=== PATIENT | male | born 1985 | race Caucasian/White ===

== ENCOUNTER → 2018-04-10 14:22 | Emergency (ER) | payer SELFPAY ==
--- NOTE | 2018-04-10 15:44 | ED ---
Lower Extremity - HPI Summary HPI Summary: Patient is a 32-year-old male who presents emergency department for a left ankle injury that occurred 4 days ago. Patient states he is taking his dog out to run in the yard when his dog ran into him and knocked him over twisting his left ankle. Patient has an walking on it with pain since. Symptoms are mild in severity. Walking and touching ankle makes symptoms worse. Rest makes symptoms better. No other injuries were sustained. - History of Current Complaint Chief Complaint: EDExtremityLower Stated Complaint: ANKLE PAIN Time Seen by Provider: 04/10/18 14:53 Hx Obtained From: Patient Pain Intensity: 8 - Allergies/Home Medications Allergies/Adverse Reactions: Allergies Allergy/AdvReac Type Severity Reaction Status Date / Time cefaclor [From [facility]] Allergy Hives Verified 04/10/18 14:28 PMH/Surg Hx/FS Hx/Imm Hx Previously Healthy: Yes Endocrine/Hematology History: Denies: Hx Diabetes, Hx Thyroid Disease Cardiovascular History: Denies: Hx Hypertension Respiratory History: Denies: Hx Asthma, Hx Chronic Obstructive Pulmonary Disease (COPD) GI History: Denies: Hx Ulcer Sensory History: Reports: Hx Vision Problem - Needs glasses Denies: Hx Hearing Problem Opthamlomology History: Reports: Hx Vision Problem - Needs glasses Neurological History: Denies: Hx Dementia, Hx Developmental Delay, Hx Headaches, Hx Migraine, Hx Nerve Disease, Hx Seizures, Hx Spinal Cord Injury, Hx Transient Ischemic Attacks (TIA), Other Neuro Impairments/Disorders - Surgical History Surgery Procedure, Year, and Place: oral Infectious Disease History: No Infectious Disease History: Denies: Hx Hepatitis, Hx Human Immunodeficiency Virus (HIV), Traveled Outside the [place] in Last 30 Days - Family History Known Family History: Positive: Other - Noncontributory - Social History Occupation: Employed Full-time Lives: With Family Alcohol Use: Rare Substance Use Type: Reports: Marijuana Smoking Status (MU): Current Every Day Smoker Review of Systems Positive: Other - left ankle pain All Other Systems Reviewed And Are Negative: Yes Physical Exam Triage Information Reviewed: Yes Vital Signs On Initial Exam: Initial Vitals Temp Pulse Resp BP Pulse Ox 99.1 F 79 14 113/76 97 04/10/18 14:26 04/10/18 14:26 04/10/18 14:26 04/10/18 14:26 04/10/18 14:26 Vital Signs Reviewed: Yes Appearance: Positive: Well-Appearing - Pt. sitting in chair in NAD. Skin: Positive: Warm, Dry Eyes: Positive: Normal, EOMI Neck: Positive: Supple Musculoskeletal: Positive: Other - Left foot is irrationally intact. No breaks in the skin. Diffuse ankle edema with pain laterally. Achilles tendon is intact. No palpable foot pain or pain to the base of the fifth metatarsal. No proximal tib-fib or knee pain. Neurological: Positive: Normal, CN Intact II-III Psychiatric: Positive: Affect/Mood Appropriate Procedures - Splinting Left Lower Extremity Pre-Made Type: aircast Pre-Proc Neuro Vasc Exam: normal Post-Proc Neuro Vasc Exam: normal Diagnostics - Vital Signs Vital Signs Temp Pulse Resp BP Pulse Ox 04/10/18 14:26 99.1 F 79 14 113/76 97 - Laboratory Lab Statement: Any lab studies that have been ordered have been reviewed, and results considered in the medical decision making process. Lower Extremity Course/Dx - Course Course Of Treatment: Presenting with left ankle injury. X-ray shows soft tissue swelling without fracture dislocation, reading per radiology. Air splint placed for comfort. Advised ice and elevate. Anti-inflammatories for pain and swelling. To follow-up with the PE or orthopedics if pain persists. Patient understands and agrees with plan. - Diagnoses Differential Diagnosis/HQI/PQRI: Positive: Arthritis, Contusion, Fracture ( Closed), Sprain, Strain Provider Diagnoses: Ankle sprain Discharge - Sign-Out/Discharge Documenting (check all that apply): Patient Departure - Discharge Plan Condition: Good Disposition: HOME Patient Education Materials: Ankle Sprain (ED) Referrals: Moy Fraga NP [Primary Care Provider] - Gonsalo Tafoya MD [Medical Doctor] - Additional Instructions: Follow up with orthopedics or PCP if pain persist Ice and elevate Splint for comfort Tylenol or Motrin for pain as directed - Billing Disposition and Condition Condition: GOOD Disposition: Home
--- NOTE | 2018-04-10 15:45 | RAD ---
HISTORY: pain, left ankle injury COMPARISONS: None VIEWS: 3 , Frontal, lateral, and oblique views of the left ankle FINDINGS: BONE DENSITY: Normal. BONES: There is no displaced fracture. JOINTS: There is no arthropathy. ALIGNMENT: There is no dislocation. SOFT TISSUES: There is circumferential soft tissue swelling. OTHER FINDINGS: None. IMPRESSION: SOFT TISSUE SWELLING. NO ACUTE OSSEOUS INJURY. IF SYMPTOMS PERSIST, RECOMMEND REPEAT IMAGING.
[2018-04-10 16:13] VITALS: BP 150/78
== END | disposition home or self-care (01) ==
LOC: ED 14:22
DX: S93.402A Sprain of unspecified ligament of left ankle, initial encounter (principal); W18.39XA Other fall on same level, initial encounter; Y92.096 Garden or yard of other non-institutional residence as the place of occurrence of the external cause; Z88.1 Allergy status to other antibiotic agents; F17.200 Nicotine dependence, unspecified, uncomplicated
CPT/HCPCS: 99282